=== PATIENT | female | born 1935 | race Caucasian/White ===

== ENCOUNTER 2021-10-04 22:32 | Emergency (ER) | payer MEDICARE, OTHER ==
[~2021-10-04 22:32] MED LIST: GARLIC500 MG PO; LOSARTAN-HCTZ1 EAC2 PO; MACROBID100 MG PO; MOBIC7.5 MG PO; NEURONTIN300 MG PO; REQUIP1 MG PO; SINGULAIR10 MG PO; TURMERIC500 M1 PO; VERAPAMIL ER120 MG PO; ZYRTEC10 M3 PO
[2021-10-04 22:52] LABS: BASOPHIL 0.9 % (0-2); EOSINOPHIL 21.2 % (0-7); HCT 42.8 % (37.0-47.0); HGB 14.7 g/dl (12.5-16.0); LYMPHOCYTE 23.9 % (15-48); MCH 32.2 pg (25.0-31.0); MCHC 34.3 g/dL (32.0-36.0); MCV 93.7 fL (78.0-100.0); MPV 9.9 fL (6.0-9.5); NEUTROPHIL 43.7 % (41-80); NRBC 0; PLT 201 K/uL (150-400); RBC 4.57 M/uL (4.20-5.40); RDW 12.4 % (11.5-14.0)
[2021-10-04 23:13] LABS: ALBUMIN 4.4 g/dL (3.4-5.0); BILIRUBIN - TOTAL 0.5 mg/dL (0.2-1.0); BUN/CREAT RATIO (CALC) 18.8 RATIO; CREATININE 0.85 mg/dL (0.51-0.95); GLOBULIN (CALCULATION) 3.6 g/dL; POTASSIUM 4.1 mmol/L (3.5-5.1)
[2021-10-04 23:30] LABS: CORONAVIRUS 2019 SARS-COV-2 NEGATIVE (NEGATIVE); INFLUENZA A NAA NEGATIVE (NEGATIVE)
[2021-10-04 23:54] LABS: LACTIC ACID 2.1 mmol/L (0.4-1.9)
[2021-10-05 01:13] LABS: BILIRUBIN NEGATIVE (NEGATIVE); BLOOD 1+ Ery/uL (NEGATIVE); CLARITY CLEAR (CLEAR); COLOR YELLOW (YELLOW); GLUCOSE (U) NORMAL (NORMAL); LEUKOCYTES TRACE Leu/uL (NEGATIVE); NITRITE NEGATIVE (NEGATIVE); PROTEIN 2+ mg/dL (NEGATIVE); UROBILINOGEN 0.2 mg/dL (0.2-1.0)
[2021-10-05 01:26] LABS: BACTERIA 1+
[2021-10-05 02:18] LABS: INR 1.04 (0.9-1.2); PTT 28.8 SECONDS (24.4-34.7)
[2021-10-05 08:38] LABS: BASOPHIL 0.5 % (0-2); EOSINOPHIL 0.2 % (0-7); HCT 39.7 % (37.0-47.0); HGB 13.5 g/dl (12.5-16.0); LYMPHOCYTE 12.8 % (15-48); MCH 31.9 pg (25.0-31.0); MCV 93.9 fL (78.0-100.0); MONOCYTE 0.6 % (0-12); MPV 10.1 fL (6.0-9.5); NEUTROPHIL 85.6 % (41-80); NRBC 0; PLT 165 K/uL (150-400); RBC 4.23 M/uL (4.20-5.40); RDW 12.4 % (11.5-14.0); WBC 6.5 K/uL (4.0-10.5)
== END 2021-10-05 09:34 | disposition other institution (70) ==
LOC: FER 22:32
PROVIDERS: Emergency Medicine
DX: J18.9 Pneumonia, unspecified organism (principal); I21.4 Non-ST elevation (NSTEMI) myocardial infarction; Z91.041 Radiographic dye allergy status; Z20.822 Contact with and (suspected) exposure to COVID-19
CPT/HCPCS: 36415; 71045; 80053; 81001; 83605; 83880; 84484; 85025; 85610; 85730; 87040; 93005; 94640; 94664; C9113; J0696; J1644; J2060; J2930; J7030; U0002